=== PATIENT | male | born 1970 | race Caucasian/White ===

== ENCOUNTER 2018-11-08 05:40 | Inpatient (IN) | payer OTHER ==
[2018-10-31 14:23] VITALS: BMI 30.1
[~2018-11-08] VITALS: Ht 170.2 cm; Wt 85.6 kg
[2018-11-08] VITALS (16 sets, daily range): BP systolic 105–145; BP diastolic 62–91; PULSE 72–94; RESP 13–20; Ht 170.2 cm; Wt 85.6 kg
[2018-11-08] MEDS ORDERED: LACTATED RINGER'S 1,000 ML IV SCH (06:00)
[2018-11-08] MEDS ORDERED: CEFAZOLIN 2 GM/50 ML (PMX) 50 ML IVPB SCH (06:00)
--- NOTE | 2018-11-08 06:43 | PREAC ---
Date/Time of Note Date/Time of Note DATE: 11/08/18 TIME: 06:43 Anesthesia Eval and Record Evaluation Time Pre-Procedure Interview DATE: 11/08/18 TIME: 06:43 Age 48 Sex male NPO: 8 hrs Preoperative diagnosis lumbar ddd Planned procedure lumbar decompression Past Medical History Past Medical History: Includes GI: Obesity Surgery & Anesthesia Issues No known issue Meds Anticoagulation: No Beta Nitesh within 24 hr: No Reason Beta Nitesh not given: Pt. not on B-Nitesh No Active Prescriptions or Reported Meds Current Medications Cefazolin Sodium/ Dextrose 50 ml @ 100 mls/hr PREOP IVPB ; Start 11/08/18 at 06:00; Stop 11/08/18 at 19:00 Lactated Ringer's 1,000 ml @ 20 mls/hr Q24H IV ; Start 11/08/18 at 06:00; Stop 11/08/18 at 19:00 Meds reviewed: Yes Allergies Coded Allergies: No Known Allergy (Unverified , 10/31/18) Allergies Reviewed: Yes Labs/Studies Labs Reviewed: Reviewed by anesthesiologist Blood Bank Test 11/08/18 06:07 Blood Product Summary Counts test: N/A Pre-procedure Exam Airway: Adequate mouth opening, Adequate thyromental dist Mallampati: Mallampati II Teeth: Normal Lung: Normal Heart: Normal ASA Physical Status ASA physical status: 2 Emergency: None Planned Anesthetic General/MAC: ETT Pre-operative Attestations Prior to commencing anesthesia and surgery, the patient was re-evaluated, there was verification of: *The patient's identity *The results of appropriate recent lab work and preoperative vital signs *The above evaluation not changing prior to induction *Anesthetic plan, risk benefits, alternative and complications discussed with patient/family; questions answered; patient/family understands, accepts and wishes to proceed. ALDEN PETTY November 08, 2018 06:43
[2018-11-08] MEDS ORDERED: FENTAnyl 50 MCG/ML VIAL ONE ×3 (06:54→10:58)
[2018-11-08] MEDS ORDERED: POLYMYXIN/BACITRACIN 1L IRRIG ONE (07:02)
[2018-11-08] MEDS ORDERED: GELATIN SIZE 100 SPONGE ONE (07:02)
[2018-11-08] MEDS ORDERED: THROMBIN 5000 UNIT VIAL ONE (07:02)
[2018-11-08] MEDS ORDERED: BUPIVACAINE 0.25% (MPF) 30 ML INJ ONE (07:02)
--- NOTE | 2018-11-08 07:10 | HPN ---
Date/Time of Note Date/Time of Note DATE: 11/08/18 TIME: 07:10 Interval H&P Admission Note Pt. seen H&P reviewed: No system changes DEEPALI FOURNIER MD November 08, 2018 07:10
[2018-11-08] MEDS ORDERED: ROCURONIUM 50 MG INJ ONE (07:56)
[2018-11-08] MEDS ORDERED: LIDOCAINE 100 MG SYRINGE ONE (07:56)
[2018-11-08] MEDS ORDERED: PROPOFOL 40 ML ONE (07:56)
[2018-11-08] MEDS ORDERED: SUGAMMADEX SODIUM 200 MG/2 ML VIAL IV ONE (07:56)
[2018-11-08] MEDS ORDERED: HYDROmorphONE 1 MG/5 ML IV SYRINGE IV ONE (10:59)
[2018-11-08] MEDS ORDERED: ONDANSETRON 4 MG INJ IV PRN ×2 (11:00)
[2018-11-08] MEDS ORDERED: ZOLPIDEM 5 MG TAB PO PRN (11:00)
[2018-11-08] MEDS ORDERED: FENTAnyl 50 MCG/ML VIAL IV PRN ×3 (11:00)
[2018-11-08] MEDS ORDERED: AL HYDROX/MG HYDROX/SIMETH 30 ML CUP PO PRN (11:00)
[2018-11-08] MEDS ORDERED: DIPHENHYDRAMINE 50 MG CAP PO PRN (11:00)
[2018-11-08] MEDS ORDERED: ALBUTEROL 0.083% (NEB) 2.5 MG/3 ML AMP HHN PRN (11:00)
[2018-11-08] MEDS ORDERED: CEPASTAT LOZENGE MT PRN (11:00)
[2018-11-08] MEDS ORDERED: BETHANECHOL 25 MG TAB PO PRN (11:00)
[2018-11-08] MEDS ORDERED: DIAZEPAM 5 MG TAB PO PRN (11:00)
[2018-11-08] MEDS ORDERED: PROCHLORPERAZINE 10 MG TAB PO PRN (11:00)
[2018-11-08] MEDS ORDERED: DIPHENHYDRAMINE 50 MG INJ IV PRN (11:00)
[2018-11-08] MEDS ORDERED: METOCLOPRAMIDE 10 MG INJ IV PRN (11:00)
[2018-11-08] MEDS ORDERED: NACL 0.9% 3 ML SYG IV SCH (11:00)
[2018-11-08] MEDS ORDERED: HYDROCODONE/APAP (5/325) TAB PO PRN (11:00)
[2018-11-08] MEDS ORDERED: DIAZEPAM 5 MG/ML SYG IM PRN (11:00)
[2018-11-08] MEDS ORDERED: NALOXONE (0.4 MG/ML) INJ IV PRN (11:00)
[2018-11-08] MEDS ORDERED: HYDROmorphONE 1 MG/5 ML IV SYRINGE IV PRN ×3 (11:00)
[2018-11-08] MEDS ORDERED: ACETAMINOPHEN 325 MG TAB PO PRN (11:00)
[2018-11-08] MEDS ORDERED: TRIMETHOBENZAMIDE 100 MG/ML VIAL IM PRN (11:00)
[2018-11-08] MEDS ORDERED: MEPERIDINE 25 MG INJ IV PRN (11:00)
[2018-11-08] MEDS ORDERED: HYDROmorphONE 0.2 MG/ML PCA IV SCH (11:00)
[2018-11-08] MEDS ORDERED: HYDROmorphONE 0.2 MG/ML PCA ONE (11:03)
--- NOTE | 2018-11-08 11:03 | SIPON ---
Date/Time of Note Date/Time of Note DATE: 11/08/18 TIME: 10:58 Operative Report Preoperative Diagnosis HNP L3-4 and L4-5 left with stenosis and epidural lipomatosis L5-S1 Postoperative Diagnosis same Operation/Procedure Performed Central decompressive laminectomy at L3 Central decompressive laminectomy at L4 Central decompressive laminectomy at L5 Microdiscectomy L3-4 on the left Microdiscectomy L4-5 on the left Excisional biopsy of epidural lipomatosis L5-S1 Medial facetectomy and foraminotomies L3-4, L4-5, and L5-S1 bilaterally Cosmetic wound closure (10 cm) Lateral localizing lumbar radiographs (2) Intraoperative nerve monitoring (3.5 hours) Surgeon see signature line acquisitions assistant Sarah QUINN Anesthesia: general Estimated blood loss: 150 - 200 ml's Transfusion Required none Specimen Spinous processes L3, L4, L5 Disk material L3-4 and L4-5 left Epidural fat L5 Grafts/Implants none Complications none DEEPALI FOURNIER MD November 08, 2018 11:03
[2018-11-08] MEDS: CEFAZOLIN 1 GM/50 ML (PMX) 50 ML IVPB SCH ×2 (11:37→17:42)
--- NOTE | 2018-11-08 12:02 | PAC ---
Date/Time of Note Date/Time of Note DATE: 11/08/18 TIME: 12:02 Post-Anesthesia Notes Post-Anesthesia Note Last documented vital signs Vital Signs Date Temp Pulse Resp B/P (MAP) Pulse Ox O2 O2 Flow FiO2 Time Delivery Rate 11/08/18 3.0 11:25 11/08/18 78 14 125/78 100 Nasal 11:24 (94) Cannula 11/08/18 98.3 10:49 Activity: WNL Respiratory function: WNL Cardiovascular function: WNL Mental status: Baseline Pain reasonably controlled: Yes Hydration appropriate: Yes Nausea/Vomiting absent: Yes ALDEN PETTY November 08, 2018 12:02
[2018-11-08] MEDS: DEXTROSE 5%-0.45% NACL 1,000 ML IV SCH ×2 (12:17→21:05)
--- NOTE | 2018-11-08 13:05 | CONS ---
Assessment/Plan Assessment/Plan Assessment/Plan (Daily) Post op med consult dict He is stable presently Will follow Consultation Date/Type/Reason Admit Date/Time November 08, 2018 at 05:40 Date/Time of Note DATE: 11/08/18 TIME: 13:04 Past Medical History Home Meds No Active Prescriptions or Reported Meds Medications Current Medications Cefazolin Sodium/ Dextrose 50 ml @ 100 mls/hr PREOP IVPB Last administered on 11/08/18at 06:48; Admin Dose 100 MLS/HR; Start 11/08/18 at 06:00; Stop 11/08/18 at 19:00 Lactated Ringer's 1,000 ml @ 20 mls/hr Q24H IV Last administered on 11/08/18at 06:48; Admin Dose 20 MLS/HR; Start 11/08/18 at 06:00; Stop 11/08/18 at 19:00 Hydromorphone HCl (Dilaudid) 0.2 mg PACU PRN IV MILD PAIN 1-3; Start 11/08/18 at 11:00; Stop 11/08/18 at 18:00 Hydromorphone HCl (Dilaudid) 0.4 mg PACU PRN IV MOD PAIN 4-6 Last administered on 11/08/18at 11:09; Admin Dose 0.4 MG; Start 11/08/18 at 11:00; Stop 11/08/18 at 18:00 Hydromorphone HCl (Dilaudid) 0.6 mg PACU PRN IV SEVERE PAIN 7-10; Start 11/08/18 at 11:00; Stop 11/08/18 at 18:00 Fentanyl (Sublimaze) 25 mcg PACU ORDER PRN IV MILD PAIN 1-3 Last administered on 11/08/18at 11:08; Admin Dose 25 MCG; Start 11/08/18 at 11:00; Stop 11/08/18 at 18:00 Fentanyl (Sublimaze) 50 mcg PACU ORDER PRN IV MOD PAIN 4-6; Start 11/08/18 at 11:00; Stop 11/08/18 at 18:00 Fentanyl (Sublimaze) 75 mcg PACU ORDER PRN IV SEVERE PAIN 7-10; Start 11/08/18 at 11:00; Stop 11/08/18 at 18:00 Ondansetron HCl (Zofran Inj) 4 mg PACU ORDER PRN IV NAUSEA/VOMITING; Start 11/08/18 at 11:00; Stop 11/08/18 at 18:00 Metoclopramide HCl (Reglan) 10 mg PACU ORDER PRN IV NAUSEA/VOMITING; Start 11/08/18 at 11:00; Stop 11/08/18 at 18:00 Albuterol (Proventil 0.083% (Neb)) 2.5 mg PACU ORDER PRN HHN .WHEEZING; Start 11/08/18 at 11:00; Stop 11/08/18 at 18:00 Meperidine HCl (Demerol) 25 mg PACU ORDER PRN IV .RIGORS; Start 11/08/18 at 11:00; Stop 11/08/18 at 18:00 Diphenhydramine HCl (Benadryl) 25 mg PACU ORDER PRN IV .PRURITUS; Start 11/08/18 at 11:00; Stop 11/08/18 at 18:00 Dextrose/Sodium Chloride 1,000 ml @ 100 mls/hr Q10H IV Last administered on 11/08/18at 12:17; Admin Dose 100 MLS/HR; Start 11/08/18 at 10:49 Acetaminophen/ Hydrocodone Bitart (Essie (5/325)) 1 tab Q4H PRN PO .PAIN 1-5; Start 11/08/18 at 11:00 Acetaminophen/ Hydrocodone Bitart (Essie (5/325)) 2 tab Q4H PRN PO .PAIN 6-10; Start 11/08/18 at 11:00 Cefazolin Sodium 50 ml @ 100 mls/hr Q6 IVPB Last administered on 11/08/18at 11:37; Admin Dose 100 MLS/HR; Start 11/08/18 at 12:00; Stop 11/09/18 at 06:29 Zolpidem Tartrate (Ambien) 5 mg HS PRN PO .INSOMNIA; Start 11/08/18 at 11:00 Prochlorperazine (Compazine) 10 mg Q4H PRN PO NAUSEA/VOMITING; Start 11/08/18 at 11:00 Trimethobenzamide HCl (Tigan) 200 mg Q4H PRN IM NAUSEA/VOMITING; Start 11/08/18 at 11:00 Ondansetron HCl (Zofran Inj) 4 mg Q6H PRN IV NAUSEA/VOMITING; Start 11/08/18 at 11:00 Al Hydrox/Mg Hydrox/Simethicone (Mag-Al Plus) 15 ml Q4H PRN PO .CONSTIPATION; Start 11/08/18 at 11:00 Docusate Sodium (Colace) 100 mg BID PO ; Start 11/09/18 at 09:00 Acetaminophen (Tylenol Tab) 650 mg Q4H PRN PO TEMP GREATER THAN 101F OR FAIR; Start 11/08/18 at 11:00 Ascorbic Acid (Vitamin C) 1,000 mg BID PO ; Start 11/09/18 at 09:00 Ferrous Sulfate (Ferrous Sulfate (Ec)) 325 mg TID PO ; Start 11/09/18 at 09:00 Ranitidine HCl (Zantac) 150 mg BID PO ; Start 11/08/18 at 21:00 Diazepam (Valium) 5 mg Q4H PRN PO .MUSCLE SPASM; Start 11/08/18 at 11:00 Diazepam (Valium) 5 mg Q4H PRN IM .MUSCLE SPASM; Start 11/08/18 at 11:00 Phenol (Cepastat Lozenge) 1 lozenge PRN PRN MT .SORE THROAT; Start 11/08/18 at 11:00 Bethanechol Chloride (Urecholine) 25 mg PRN PRN PO .UNABLE TO VOID; Start 11/08/18 at 11:00 Diphenhydramine HCl (Benadryl) 50 mg Q6H PRN PO .PRURITUS; Start 11/08/18 at 11:00 IV Flush (NS 3 ml) 3 ml PER PROTOCOL IV ; Start 11/08/18 at 11:00 Hydromorphone HCl (Dilaudid FRONT LINE LEADER) Q4PCA IV Last administered on 11/08/18at 11:17; Admin Dose 6 MG; Start 11/08/18 at 11:00 Naloxone HCl (Narcan) 0.2 mg Q2M PRN IV RR 8 BREATHS/MIN OR LESS; Start 11/08/18 at 11:00 Allergies: Coded Allergies: No Known Allergy (Unverified , 11/08/18) Social History Smoking Status: Unknown if ever smoked Exam/Review of Systems Exam Vitals Vital Signs Date Temp Pulse Resp B/P (MAP) Pulse Ox O2 O2 Flow FiO2 Time Delivery Rate 11/08/18 98.3 87 18 126/74 99 12:18 (91) 11/08/18 3.0 11:25 11/08/18 Nasal 11:24 Cannula Medications Medication Current Medications Cefazolin Sodium/ Dextrose 50 ml @ 100 mls/hr PREOP IVPB Last administered on 11/08/18at 06:48; Admin Dose 100 MLS/HR; Start 11/08/18 at 06:00; Stop 11/08/18 at 19:00 Lactated Ringer's 1,000 ml @ 20 mls/hr Q24H IV Last administered on 11/08/18at 06:48; Admin Dose 20 MLS/HR; Start 11/08/18 at 06:00; Stop 11/08/18 at 19:00 Hydromorphone HCl (Dilaudid) 0.2 mg PACU PRN IV MILD PAIN 1-3; Start 11/08/18 at 11:00; Stop 11/08/18 at 18:00 Hydromorphone HCl (Dilaudid) 0.4 mg PACU PRN IV MOD PAIN 4-6 Last administered on 11/08/18at 11:09; Admin Dose 0.4 MG; Start 11/08/18 at 11:00; Stop 11/08/18 at 18:00 Hydromorphone HCl (Dilaudid) 0.6 mg PACU PRN IV SEVERE PAIN 7-10; Start 11/08/18 at 11:00; Stop 11/08/18 at 18:00 Fentanyl (Sublimaze) 25 mcg PACU ORDER PRN IV MILD PAIN 1-3 Last administered on 11/08/18at 11:08; Admin Dose 25 MCG; Start 11/08/18 at 11:00; Stop 11/08/18 at 18:00 Fentanyl (Sublimaze) 50 mcg PACU ORDER PRN IV MOD PAIN 4-6; Start 11/08/18 at 11:00; Stop 11/08/18 at 18:00 Fentanyl (Sublimaze) 75 mcg PACU ORDER PRN IV SEVERE PAIN 7-10; Start 11/08/18 at 11:00; Stop 11/08/18 at 18:00 Ondansetron HCl (Zofran Inj) 4 mg PACU ORDER PRN IV NAUSEA/VOMITING; Start 11/08/18 at 11:00; Stop 11/08/18 at 18:00 Metoclopramide HCl (Reglan) 10 mg PACU ORDER PRN IV NAUSEA/VOMITING; Start 11/08/18 at 11:00; Stop 11/08/18 at 18:00 Albuterol (Proventil 0.083% (Neb)) 2.5 mg PACU ORDER PRN HHN .WHEEZING; Start 11/08/18 at 11:00; Stop 11/08/18 at 18:00 Meperidine HCl (Demerol) 25 mg PACU ORDER PRN IV .RIGORS; Start 11/08/18 at 11:00; Stop 11/08/18 at 18:00 Diphenhydramine HCl (Benadryl) 25 mg PACU ORDER PRN IV .PRURITUS; Start 11/08/18 at 11:00; Stop 11/08/18 at 18:00 Dextrose/Sodium Chloride 1,000 ml @ 100 mls/hr Q10H IV Last administered on 11/08/18at 12:17; Admin Dose 100 MLS/HR; Start 11/08/18 at 10:49 Acetaminophen/ Hydrocodone Bitart (Essie (5/325)) 1 tab Q4H PRN PO .PAIN 1-5; Start 11/08/18 at 11:00 Acetaminophen/ Hydrocodone Bitart (Essie (5/325)) 2 tab Q4H PRN PO .PAIN 6-10; Start 11/08/18 at 11:00 Cefazolin Sodium 50 ml @ 100 mls/hr Q6 IVPB Last administered on 11/08/18at 11:37; Admin Dose 100 MLS/HR; Start 11/08/18 at 12:00; Stop 11/09/18 at 06:29 Zolpidem Tartrate (Ambien) 5 mg HS PRN PO .INSOMNIA; Start 11/08/18 at 11:00 Prochlorperazine (Compazine) 10 mg Q4H PRN PO NAUSEA/VOMITING; Start 11/08/18 at 11:00 Trimethobenzamide HCl (Tigan) 200 mg Q4H PRN IM NAUSEA/VOMITING; Start 11/08/18 at 11:00 Ondansetron HCl (Zofran Inj) 4 mg Q6H PRN IV NAUSEA/VOMITING; Start 11/08/18 at 11:00 Al Hydrox/Mg Hydrox/Simethicone (Mag-Al Plus) 15 ml Q4H PRN PO .CONSTIPATION; Start 11/08/18 at 11:00 Docusate Sodium (Colace) 100 mg BID PO ; Start 11/09/18 at 09:00 Acetaminophen (Tylenol Tab) 650 mg Q4H PRN PO TEMP GREATER THAN 101F OR FAIR; Start 11/08/18 at 11:00 Ascorbic Acid (Vitamin C) 1,000 mg BID PO ; Start 11/09/18 at 09:00 Ferrous Sulfate (Ferrous Sulfate (Ec)) 325 mg TID PO ; Start 11/09/18 at 09:00 Ranitidine HCl (Zantac) 150 mg BID PO ; Start 11/08/18 at 21:00 Diazepam (Valium) 5 mg Q4H PRN PO .MUSCLE SPASM; Start 11/08/18 at 11:00 Diazepam (Valium) 5 mg Q4H PRN IM .MUSCLE SPASM; Start 11/08/18 at 11:00 Phenol (Cepastat Lozenge) 1 lozenge PRN PRN MT .SORE THROAT; Start 11/08/18 at 11:00 Bethanechol Chloride (Urecholine) 25 mg PRN PRN PO .UNABLE TO VOID; Start 11/08/18 at 11:00 Diphenhydramine HCl (Benadryl) 50 mg Q6H PRN PO .PRURITUS; Start 11/08/18 at 11:00 IV Flush (NS 3 ml) 3 ml PER PROTOCOL IV ; Start 11/08/18 at 11:00 Hydromorphone HCl (Dilaudid FRONT LINE LEADER) Q4PCA IV Last administered on 11/08/18at 11:17; Admin Dose 6 MG; Start 11/08/18 at 11:00 Naloxone HCl (Narcan) 0.2 mg Q2M PRN IV RR 8 BREATHS/MIN OR LESS; Start 11/08/18 at 11:00 TINO LOZANO MD November 08, 2018 13:05
--- NOTE | 2018-11-08 13:24 | OPR ---
DATE OF OPERATION: 11/08/2018 PREOPERATIVE DIAGNOSES: 1. Herniated disk at L3 to L4 on the left. 2. Herniated disk at L4 to L5 on the left. 3. Epidural lipomatosis at L5 to S1. 4. Lumbar spinal stenosis at L3 and L4. POSTOPERATIVE DIAGNOSES: 1. Herniated disk at L3 to L4 on the left. 2. Herniated disk at L4 to L5 on the left. 3. Epidural lipomatosis at L5 to S1. 4. Lumbar spinal stenosis at L3 and L4. OPERATION PROCEDURES: 1. Central decompressive laminectomy at L3. 2. Central decompressive laminectomy at L4. 3. Central decompressive laminectomy at L5. 4. Microdiskectomy L3 to L4 on the left. 5. Microdiskectomy L4 to L5 on the left. 6. Excisional biopsy of epidural lipomatosis at L5 to S1. 7. Medial facetectomy and foraminotomy L3 to L4, L4 to L5 and L5 to S1 bilaterally. 8. Cosmetic wound closure (10 cm). 9. Lateral localized lumbar radiographs (2). 10. Intraoperative nerve monitoring (3-1/2 hours) SURGEON: Dewayne Jones MD PRODUCT REPRESENTATIVE: KAI Bautista ANESTHESIA: Endotracheal. ANESTHESIOLOGIST: Jorge Pearce MD ESTIMATED BLOOD LOSS: 175 mL - none replaced. DRAINS: Two medium Hemovac drains employed. COMPLICATIONS: None. PERTINENT HISTORY AND PHYSICAL: This is a 48-year-old male who sustained an injury to his back in th e course of his employment on 01/26/2016. He has had extensive care since that time, has remained sy mptomatic with low back and right leg pain which has been unrelieved by conservative management. He has undergone a number of diagnostic studies including an MRI of the lumbar spine, which demonstrated canal stenosis at L3 and L4 along with epidural lipomatosis at L5 and herniated disks at L3 to L4 on the left and L4 to L5 centrally and to the left. Treatment options were discussed with the patient, who elected to proceed with surgery. OPERATIVE FINDINGS AT SURGERY: Disk herniations at L3 to L4 and L4 to L5 were confirmed along with e pidural lipomatosis at L5. The baseline intraoperative nerve monitoring revealed a decrease in the l eft L3 potential of 30%, the left L4 potential of 30%, the right L4 potential of 40% and the right L5 potential of 40%. These all returned to normal at the completion of surgery. OPERATIVE PROCEDURE IN DETAILS: With the patient in supine position after satisfactory induction of general endotracheal anesthesia by Dr. Pearce, the patient was turned to the prone kneeling positi on over the Halls frame. All pressure points were carefully padded. The back was prepped and bryan ped in usual sterile fashion. Athrombic pumps were applied to the legs below the knees to prevent ve nous stasis during and after procedure. An indwelling Wise catheter was also placed preoperatively to facilitate bladder drainage during and after procedure. Two spinal needle was placed into what wa s felt to be the L3 and L5 spinous processes. Lateral roentgenogram was taken which confirmed anatom ic localization. A 10 cm incision then carried out midline from L3 to the sacrum through skin and bean bcutaneous tissue to deep fascia after skin was infiltrated with 0.25% Marcaine without epinephrine f or postoperative analgesia. Superficial retractors were placed and hemostasis was secured with elect rocautery. Throughout the procedure, copious amounts of antibacterial irrigating solution were used to periodically irrigate the wound. The fascia was incised in midline with a hot knife and a bilater al subperiosteal dissection was carried out from L3 to the sacrum. Deep retractors were placed and d eep hemostasis was secured with electrocautery. A second intraoperative radiograph was taken with Ko carlitos clamps and placed in what was felt to be the spinous process of L3, L4 and L5. This was confirm ed with second x-ray. A central decompressive laminectomy at L3, L4 and L5 was then carried out alli Yang right-angle bone rongeur, Yecenia rongeur, Kerrison punches and curettes. Ligamentum fla vum was excised with sharp dissection. The operating microscope was then moved into place. Medial f acetectomy and foraminotomy was accomplished using small hand osteotome, mallet, Kerrison punches and curettes. The operating microscope was then moved into place. At this point, there was a thick enc asement of the dural sac and S1 nerve roots with epidural fat at L5 to S1 and this was peeled off of the dura and the roots with a Kent dissector and sent to laboratory for pathologic study. Attenti on was then turned to the L4 to L5 disk on the left where the L5 root was mobilized medially and prot ected with D'Errico nerve retractor using microdissection technique. This revealed a small to modera te central and left paracentral herniation of the L4 to L5 disk. A 15-blade knife was used to cut a rectangular window in the annulus and posterior longitudinal ligament and multiple degenerative disk fragments were harvested with pituitary rongeurs and sent to laboratory for pathologic study. Additi onal fragments were harvested using Gomez curettes. A thorough search of the floor of the canal wa s made with an arthroscopic probe. No additional fragments were encountered. The epidural hemostasi s was secured with bipolar electrocautery on low setting. Attention then turned to the L3 to L4 disk on the left where the L4 root on the left was mobilized medially and protected with D'Errico nerve r etractor using microdissection technique. This revealed a small herniation of the L3 to L4 disk on t he left. A 15-blade knife was used to cut a rectangular window in the annulus and posterior longitud inal ligament. Multiple degenerative disk fragments were harvested with pituitary rongeurs and sent to laboratory for pathologic study. Additional fragments were harvested using Gomez curettes. A t horough search of the floor canal was made with an arthroscopic probe. No additional fragments were encountered. The epidural hemostasis was secured with bipolar electrocautery on low setting at this level as well. The anesthesiologist then asked to perform a Valsalva maneuver at 40 mmHg and no spin al fluid leak was noted. The wound was then closed in layers over 2 medium Hemovac drains, one below the fascia, one above the fascia using #1 Stratafix sutures in deep paralumbar musculature and deep fascia of back, 2-0 Vicryl and 2-0 Stratafix sutures deep on subcutaneous tissue and a 4-0 Vicryl sub cuticular cosmetic closing suture on the skin. Dermabond and sterile compressive dressings were appl ied. The patient having tolerated the procedure well, was then turned to the supine position [facility] bed and extubated by Dr. Pearce. He was transported to the recovery room in [facility] cond ion. At the conclusion of procedure, sponge, instrument and needle counts were all correct. NEED FOR EDGING SUPERVISOR: During this spinal surgical procedure, my instructional support assistant was used to retract and protect the spinal nerves and dural sac. My instructional support assistant also employed the suction catheters to meghna azael blood from the surgical field to improve visualization of the neural structures. The instructional support assistant was medically necessary to facilitate the completion of the surgery in a safe and expeditious manner. [facility] [place] regulations, as well as hospital bylaws, preclude the use of non-licensed health care personnel such as operating room technicians, to perform these functions. Throughout the procedure, neural monitoring was carried out by Lela including EMG, SSEP a nd MEP monitoring of the L3, L4, L5 and S1 nerve roots bilaterally. These were interpreted in real t christi by Dr. Kavon Starks. Dictated By: DEWAYNE JONES MD TM/NTS Conf#: [id number] DID#: [id number] CC: ITNO LOZANO MD;*[facility]*
--- NOTE | 2018-11-08 14:34 | CONS ---
DATE OF ADMISSION: 11/08/2018 DATE OF CONSULTATION: 11/08/2018 TYPE OF CONSULTATION: Postoperative medical. Thank you very much for allowing me to evaluate this 48-year-old male who underwent lumbar back surge ry for unrelenting low back pain and right leg sciatica. This has been problematic for at least 4 to 5 years that did not improve with conservative therapy. Postoperatively, he admits to [facility] back p ain, denying cough, wheezing, shortness of breath, nausea, vomiting, abdominal or chest pain. PAST MEDICAL HISTORY: Includes only hemorrhoidectomy. ALLERGIES: NONE. 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 Does not smoke, rarely drinks alcohol. FAMILY HISTORY: Mom and dad have no serious illnesses. He has 2 sisters that are in good health. PHYSICAL EXAMINATION: GENERAL: [place] male in no acute distress. VITAL SIGNS: BP 110/72, pulse 72, respirations were 18. He was afebrile. HEENT: Eyes: Extraocular muscles were full. Nose, mouth and throat are normal. NECK: Supple. There was no jugular venous distention, thyroid enlargement or adenopathy. Carotids are 2+. LUNGS: Clear. HEART: Rhythm regular. No murmur. No third or fourth sound. ABDOMEN: Nontender. Liver and spleen were not palpable. No mass or tenderness were noted. EXTREMITIES: No edema, no calf tenderness. NEUROLOGIC: No lateralizing motor weakness. IMPRESSION: 1. Stable postoperative lumbar back surgery. 2. We will evaluate daily for signs and symptoms of thromboembolic disease. 3. Preoperative laboratories did reveal some microscopic hematuria. This was reviewed with the dequan ent. We will obtain a repeat UA after discharge. Dictated By: TINO NEWMAN/NTS Conf#: [id number] DID#: [id number] CC: DEEPALI FOURNIER MD;*[facility]*
[2018-11-08] MEDS: RANITIDINE 150 MG TAB PO SCH (21:04)
[2018-11-09 00:07] VITALS: BP 125/70; PULSE 95; RESP 18
[2018-11-09] MEDS: CEFAZOLIN 1 GM/50 ML (PMX) 50 ML IVPB SCH ×2 (00:23→05:02)
[2018-11-09 05:00] VITALS: BP 128/74; PULSE 87; RESP 18
--- NOTE | 2018-11-09 06:55 | PN ---
Date/Time of Note Date/Time of Note DATE: 11/09/18 TIME: 06:48 Assessment/Plan Lines/Catheters IV Catheter Type (from Nrs): Peripheral IV Wise in Place (from Nrs): Yes Subjective 24 Hr Interval Summary The patient is postop day #1 following a decompressive laminectomy at L3-L4 and L5 with microdiscectomy at L3-4 and L4-5 on the left. He is resting comfortably in bed. He is afebrile. Neurovascular structures are intact distally. A.m. lab work is unremarkable. His Wise catheter will be removed this morning. His Hemovac had 40 cc of blood since last night, and will be discontinued. He will be mobilized as tolerated by physical therapy, and possibly discharged later today if cleared by physical therapy. He has been given strict discharge precautions and instructions as well as follow-up arrangements. Exam/Review of Systems Vital Signs Vitals Vital Signs Date Temp Pulse Resp B/P (MAP) Pulse Ox O2 O2 Flow FiO2 Time Delivery Rate 11/09/18 18 05:00 11/09/18 98.7 87 128/74 99 Room Air 05:00 (92) 11/08/18 2.0 21:48 Intake and Output 11/08/18 11/08/18 11/09/18 1515:00 23:00 07:00 IntakeIntake Total 2000 ml 1050 ml 1110 ml OutputOutput Total 420 ml 810 ml 1840 ml BalanceBalance 1580 ml 240 ml -730 ml Results Result Diagram: 11/09/18 0428 11/09/18 0428 DEEPALI FOURNIER MD November 09, 2018 06:55
[2018-11-09 07:09] VITALS: BP 109/60; PULSE 92; RESP 18
[2018-11-09] MEDS ORDERED: BETHANECHOL 25 MG TAB PO PRN (08:00)
--- NOTE | 2018-11-09 08:08 | CONS ---
Assessment/Plan Assessment/Plan Assessment/Plan (Daily) 1-Stable post op lumbar back surgery 2-Labs rev 3-Proceed with PT and OT Consultation Date/Type/Reason Admit Date/Time November 08, 2018 at 05:40 Initial Consult Date Date/Time of Note DATE: 11/09/18 TIME: 08:06 Detailed Summary Respiratory: No cough, No shortness of breath Cardiovascular: No no complaints, No chest pain Gastrointestinal: no complaints Genitourinary: no complaints, other (palmer in place) Musculoskeletal: back pain (moderate) Exam/Review of Systems Exam Vitals Vital Signs Date Temp Pulse Resp B/P (MAP) Pulse Ox O2 O2 Flow FiO2 Time Delivery Rate 11/09/18 97.9 92 18 109/60 99 07:09 (76) 11/09/18 Room Air 05:00 11/08/18 2.0 21:48 Intake and Output 11/08/18 11/08/18 11/09/18 1515:00 23:00 07:00 IntakeIntake Total 2000 ml 1050 ml 1110 ml OutputOutput Total 420 ml 810 ml 1840 ml BalanceBalance 1580 ml 240 ml -730 ml Neck: No jvd Respiratory: clear to auscultation Cardiovascular: regular rate and rhythm Gastrointestinal: soft Extremities: No calf tenderness, No edema Results Result Diagram: 11/09/18 0428 11/09/18 0428 Results 24hrs Laboratory Tests Test 11/09/18 04:28 11/09/18 07:59 Hemoglobin 12.7 L Hematocrit 37.1 L Sodium Level 139 Potassium Level 3.9 Chloride Level 105 Carbon Dioxide Level 26 Anion Gap 8 Blood Urea Nitrogen 9 Creatinine 0.90 Est Glomerular Filtrat Rate mL/min > 60 Glucose Level 119 Calcium Level 8.1 L Lab Scanned Report REFERENCE LAB Medications Medication Current Medications Dextrose/Sodium Chloride 1,000 ml @ 100 mls/hr Q10H IV Last administered on 11/08/18at 21:05; Admin Dose 100 MLS/HR; Start 11/08/18 at 10:49 Acetaminophen/ Hydrocodone Bitart ([place] (5/325)) 1 tab Q4H PRN PO .PAIN 1-5; Start 11/08/18 at 11:00 Acetaminophen/ Hydrocodone Bitart ([place] (5/325)) 2 tab Q4H PRN PO .PAIN 6-10; Start 11/08/18 at 11:00 Zolpidem Tartrate (Ambien) 5 mg HS PRN PO .INSOMNIA; Start 11/08/18 at 11:00 Prochlorperazine (Compazine) 10 mg Q4H PRN PO NAUSEA/VOMITING; Start 11/08/18 at 11:00 Trimethobenzamide HCl (Tigan) 200 mg Q4H PRN IM NAUSEA/VOMITING; Start 11/08/18 at 11:00 Ondansetron HCl (Zofran Inj) 4 mg Q6H PRN IV NAUSEA/VOMITING; Start 11/08/18 at 11:00 Al Hydrox/Mg Hydrox/Simethicone (Mag-Al Plus) 15 ml Q4H PRN PO .CONSTIPATION; Start 11/08/18 at 11:00 Docusate Sodium (Colace) 100 mg BID PO ; Start 11/09/18 at 09:00 Acetaminophen (Tylenol Tab) 650 mg Q4H PRN PO TEMP GREATER THAN 101F OR FAIR; Start 11/08/18 at 11:00 Ascorbic Acid (Vitamin C) 1,000 mg BID PO ; Start 11/09/18 at 09:00 Ferrous Sulfate (Ferrous Sulfate (Ec)) 325 mg TID PO ; Start 11/09/18 at 09:00 Ranitidine HCl (Zantac) 150 mg BID PO Last administered on 11/08/18at 21:04; Admin Dose 150 MG; Start 11/08/18 at 21:00 Diazepam (Valium) 5 mg Q4H PRN PO .MUSCLE SPASM; Start 11/08/18 at 11:00 Diazepam (Valium) 5 mg Q4H PRN IM .MUSCLE SPASM; Start 11/08/18 at 11:00 Phenol (Cepastat Lozenge) 1 lozenge PRN PRN MT .SORE THROAT; Start 11/08/18 at 11:00 Bethanechol Chloride (Urecholine) 25 mg PRN PRN PO .UNABLE TO VOID; Start 11/08/18 at 11:00 Diphenhydramine HCl (Benadryl) 50 mg Q6H PRN PO .PRURITUS; Start 11/08/18 at 11:00 IV Flush (NS 3 ml) 3 ml PER PROTOCOL IV ; Start 11/08/18 at 11:00 Hydromorphone HCl (Dilaudid [employer]) Q4PCA IV Last administered on 11/08/18at 11:17; Admin Dose 6 MG; Start 11/08/18 at 11:00 Naloxone HCl (Narcan) 0.2 mg Q2M PRN IV RR 8 BREATHS/MIN OR LESS; Start 11/08/18 at 11:00 Bethanechol Chloride (Urecholine) 25 mg PRN PRN PO UNABLE TO VOID; Start 11/09/18 at 08:00 TINO LOZANO MD November 09, 2018 08:08
[2018-11-09] MEDS: HYDROCODONE/APAP (5/325) TAB PO PRN ×2 (08:32→16:37)
[2018-11-09] MEDS: RANITIDINE 150 MG TAB PO SCH (08:33)
[2018-11-09] MEDS: DEXTROSE 5%-0.45% NACL 1,000 ML IV SCH (09:00)
[2018-11-09] MEDS ORDERED: DOCUSATE SODIUM 100 MG CAP PO SCH (09:00)
[2018-11-09] MEDS ORDERED: ASCORBIC ACID 500 MG TAB PO SCH (09:00)
[2018-11-09] MEDS: FERROUS SULFATE (EC) 325 MG TAB PO SCH ×2 (09:08→16:37)
[2018-11-09 15:23] VITALS: BP 128/87; PULSE 88; RESP 18
--- NOTE | 2018-11-13 10:55 | DS ---
Date/Time of Note Date/Time of Note DATE: 11/13/18 TIME: 10:54 Discharge Summary Admission/Discharge Info Admit Date/Time November 08, 2018 at 05:40 Discharge Date/Time November 09, 2018 at 17:20 Discharge Diagnosis 1. Herniated disk at L3 to L4 on the left. 2. Herniated disk at L4 to L5 on the left. 3. Epidural lipomatosis at L5 to S1. 4. Lumbar spinal stenosis at L3 and L4. Patient Condition: Good Hospital Course Patient did well postoperatively. His pain was well controlled. His diet and activity were advanced as tolerated. He was discharged home in good condition on postop day #1 and strict discharge and follow-up instructions. Home Meds No Active Prescriptions or Reported Meds Follow-up Plan Follow up with Dr. Jones in 1 to 2 weeks. Primary Care Provider Not On Staff Doctor RAÚL PAZ 3, 2019 10:55
== END 2018-11-09 17:20 | disposition home or self-care (01) | DRG 520 ==
LOC: REC 05:40 → MS1 12:17
PROVIDERS: ADMIT Orthopaedic Surgery; ATTEND Orthopaedic Surgery
PROC: 0ST20ZZ Resection of Lumbar Vertebral Disc, Open Approach (ICD-10-PCS; 2018-11-08)
PROC: 4A11X4G Monitoring of Peripheral Nervous Electrical Activity, Intraoperative, External Approach (ICD-10-PCS; 2018-11-08)
PROC: 00NY0ZZ Release Lumbar Spinal Cord, Open Approach (ICD-10-PCS; principal; 2018-11-08 07:00)
DX: M51.26 Other intervertebral disc displacement, lumbar region (principal); M48.061 Spinal stenosis, lumbar region without neurogenic claudication; E88.2 Lipomatosis, not elsewhere classified; R31.9 Hematuria, unspecified
CPT/HCPCS: 72020; 80048; 81001; 85014; 85018; 86850; 86900; 86901; 86920; 87086; 88304; 88311; 97116; 97162; 97530; J0690; J1170; J1200; J2001; J2175; J3010; J7042; J7120